=== PATIENT | male | born 2000 | race African-American/Black ===

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

== ENCOUNTER 2022-01-24 17:43 | Emergency (ER) | payer OTHER ==
[2022-01-24 19:20] LABS: SARS-CoV-2 NAA Rapid Test Not Detected (NotDetected)
== END 2022-01-24 18:15 | disposition home or self-care (01) ==
LOC: MADERS 17:43
DX: R51.9 Headache, unspecified (principal); J02.9 Acute pharyngitis, unspecified; Z20.822 Contact with and (suspected) exposure to COVID-19
CPT/HCPCS: 99283; U0002

== ENCOUNTER 2022-03-25 19:55 | Emergency (ER) | payer OTHER | END 2022-03-25 20:53 | disposition home or self-care (01) | LOC: MADERS 19:55 | DX: A08.4 Viral intestinal infection, unspecified (principal) | CPT/HCPCS: 99283 ==